=== PATIENT | male | born 2005 | race Caucasian/White ===

== ENCOUNTER 2024-06-05 00:57 | Emergency (ER) | payer MEDICAID, SELFPAY ==
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
--- OUTSIDE RECORDS SUMMARY | 2024-06-05 01:14 | XMS_ITS | Encounter Summary ---
Author Organization [facility] [place] Address [address] [place] [address] Care Team Providers Care Online Affiliate Marketing Manager Name Role Phone Herb Rangel MD Primary Care Provider [phone] Reason for Visit * Reason Comments Groin Pain Encounter Details Date Type Department Care Team (Late st Contact Info) Description 03/16/2024 17:14 EDT - 03/16/2024 18:29 EDT Emergency [facility] Emergency Department [address] [place] [id number] Damon Gonzalez MD [address] [place] [address] Pain in left testicle (Primary Dx) Discharge Disposition: Another Health Care Institution Not Defined Social History Tobacco Use Types Packs/Day Years [...] 16:32 EDT Sexual Orientation Not on file documented as of this encounter Last Filed Vital Signs Vital Sign Reading Time Taken Comments Blood Pressure 127/70 03/16/2024 1627 EDT Pulse 85 03/16/2024 1627 EDT Temperature 36.7 ??C (98.1 ??F) 03/16/2024 1627 EDT Respiratory Rate 16 03/16/2024 1627 EDT Oxygen Saturation 97% 03/16/2024 1627 EDT Inhaled Oxygen Concentration - - Weight 67.1 kg (148 lb) 03/16/2024 1627 EDT Height 180.3 cm (5' 11) 03/16/2024 1627 EDT Body Mass Index 20.64 03/16/2024 1627 EDT documented in this encounter Functional Status Functional Status Response Date of Assess ment Are you deaf or do you have serious difficulty h earing? No 03/16/2024 documented as of this encounter Discharge Instructions * Discharge Instructions* Damon Gonzalez MD - 03/16/2024 17:45 EDT Go directly to the ER at [facility] to have an ultrasound of your testicles/scrotum. Check in at the ER. documented in this encounter Medications at Time of Discharge Medication Sig Dispensed Refills Start Date End Date Estradiol Valerate 20 mg/mL oil INJECT 0.15 ML (3 MG TOTAL) UNDER THE SKIN EVERY 7 (SEVEN) DAYS. DISCARD VIAL AFTER 4 USES. 03/04/2024 spironolactone (ALDACTONE) 50 mg tablet Take 1 Tablet by mouth 2 times daily. 03/08/2024 documented as of this encounter Discharge Disposition Disposition Code Departure Means Destination Comment s Another Health Care Institution Not Defined documented in this encounter ED Notes * Antione Howard RN - 03/16/2024 1628 EDT Pt presents to the ED ambulatory with c/o bilateral testicular pain s/p intercourse 2 hours ago. Reports pain has traveled into his pelvis/lower abdomen. Rating pain 10/10. Pt is transgender, startedhormone blockers 2 weeks ago. * Damon Gonzalez MD - 03/16/2024 1605 EDT Emergency Department Visit Medical Decision Making 18-year-old male transitioning to female transgender who recently started hormone blockers who presents to the ED for testicle pain which started after intercourse this afternoon around 2 PM. The pain initially was in both testicles but now is mostly in the left testicle with some mild swelling of the left testicle and diminished cremaster reflex. Relevant Data as of 03/16/241754e Mar 16, 2024 1748 I spoke with the transfer center and the patient is in auto accepted to go directly to the ER so that he can have a scrotal ultrasound to evaluate for testicular torsion. I spoke with Dr. Moses in the ER at [facility] who has accepted the patient for transfer. The patient will go by private auto. His friend will drive him. [DT] Relevant Data User Index [DT] Damon Gonzalez MD Medical Decision Making Problems Addressed: Pain in left testicle: acute illness or injury Final diagnoses: Pain in left testicle Disposition: Transfered to Another Facility Chief complaint: Groin pain/testicle pain HPI Gibran Holliday is a 18 y.o. male transitioning to female transgender, recently started hormone blockers who presents to the ED for bilateral testicle pain and swelling. The patient developed pain and swelling in both testicles at around 2 PM today after intercourse. Now the pain seems to be more on the left side. The pain has improved somewhat and the swelling also seems to have improved. No dysuria. No penile discharge. No fever. No vomiting. History was provided by: Patient Records reviewed include: Nurses notes Patient's pertinent PMH, FH, SH were reviewed and edited as necessary. Nursing notes reviewed. A medical screening exam was performed. Physical Exam BP 127/70 (BP Cuff Location: Right arm, BP Patient Position: Sitting) Pulse 85 Temp 36.7 ??C (98.1 ??F) (Temporal) Resp 16 Ht 180.3 cm (71) Wt 67.1 kg (148 lb) SpO2 97% BMI 20.64 kg/m?? Physical Exam General/constitutional: Well-nourished, well-developed, alert and cooperative Abdomen: Soft and nontender : Slight swelling of left testicle with tenderness, not high riding, no cremaster reflex on the right or left. Right testicle appears unremarkable. Scrotum unremarkable. No penile discharge. Procedures Procedures documented in this encounter Plan of Treatment Upcoming Encounters Date Type Department Care Team (Late st Contact Info) Description 08/25/2024 10:30 EST Office Visit [facility] Urology - Medical Office Building [address] [facility], [address] [place] [address] Christopher Vogt MD [address] [facility], [address] [place] [address] documented as of this encounter Visit Diagnoses Diagnosis Pain in left testicle- Primary Unspecified disorder of male genital organs documented in this encounter Historical Medications * This list may reflect changes made after this encounter. Medication Sig Dispensed Refills Start Date End Date spironolactone (ALDACTONE) 50 mg tablet Take 1 Tablet by mouth 2 times daily. 03/08/2024 Estradiol Valerate 20 mg/mL oil INJECT 0.15 ML (3 MG TOTAL) UNDER THE SKIN EVERY 7 (SEVEN) DAYS. DISCARD VIAL AFTER 4 USES. 03/04/2024 added in this encounter Care Teams Online Affiliate Marketing Manager Relationship Specialty Start Date End Date Herb Rangel MD [address] [facility] [address] [place], [place] [address] PCP - General 03/16/24 documented as of this encounter
--- OUTSIDE RECORDS SUMMARY | 2024-06-05 01:14 | XMS_ITS | Encounter Summary ---
Author Organization [facility] Address [address] [place] [address] Care Team Providers Care Carbon Coater Machine Operator Name Role Phone Herb Rangel MD Primary Care Provider [phone] Encounter Details Date Type Department Care Team (Latest Contact Info) Description 03/16/2024 Travel Social History Tobacco Use Types Packs/Day Years Used Date Smoking Tobacco: Every Day Cigarettes Comments:Vaping Alcohol Use Standard Drinks/Week Comments Not Currently 0 (1 standard drink = 0.6 oz pur e alcohol) Interpersonal Safety Answer Date Record ed Physically Hurt Never 08/22/2020 Verbally Threaten Not on file 08/22/2020 Sex and Gender Information Value Date Recorded Sex Assigned at Not on file Gender Identity Male 03/16/2024 16:32 EDT Sexual Orientation Not on file documented as of this encounter Functional Status Functional Status Response Date of Assess ment Are you deaf or do you have serious difficulty h earing? No 03/16/2024 documented as of this encounter Plan of Treatment Upcoming Encounters Date Type Department Care Team (Late st Contact Info) Description 08/25/2024 10:30 EST Office Visit [facility] Urology - Medical Office Building [address] [facility], [address] [place] [address] Christopher Vogt MD [address] [facility], [address] [place] [address] documented as of this encounter Visit Diagnoses Not on filedocumented in this encounter Care Teams Carbon Coater Machine Operator Relationship Specialty Start Date End Date Herb Rangel MD [address] [place] [address] [address] [place] [address] PCP - General 03/16/24 documented as of this encounter
--- OUTSIDE RECORDS SUMMARY | 2024-06-05 01:14 | XMS_ITS | Encounter Summary ---
Author Organization [facility] Address [address] [place] [address] Care Team Providers Care Freight Broker Agent Name Role Phone None, Provider Primary Care Provider Unavailabl e Encounter Details Date Type Department Care Team (Latest Contact Info) Description 03/13/2024 Travel Social History Tobacco Use Types Packs/Day Years Used Date Smoking Tobacco: Never Assessed Interpersonal Safety Answer Date Record ed Physically Hurt Never 08/22/2020 Verbally Threaten Not on file 08/22/2020 Sex and Gender Information Value Date Recorded Sex Assigned at Not on file Gender Identity Male 03/16/2024 16:32 EDT Sexual Orientation Not on file documented as of this encounter Plan of Treatment Upcoming Encounters Date Type Department Care Team (Late st Contact Info) Description 08/25/2024 10:30 EST Office Visit [facility] Urology - Medical Office Building [address] [place] [address], [address] [place] [address] Christopher Vogt MD [address] [facility], [address] [place] [address] documented as of this encounter Visit Diagnoses Not on filedocumented in this encounter Care Teams Freight Broker Agent Relationship Specialty Start Date End Date None, Provider PCP - General 03/13/24 03/15/24 documented as of this encounter
--- OUTSIDE RECORDS SUMMARY | 2024-06-05 01:14 | XMS_ITS | Encounter Summary ---
Author Organization [facility] Address [address] [place] [address] Care Team Providers Care Orthopedic Assistant Name Role Phone Herb Rangel MD Primary Care Provider [phone] None, Provider Primary Care Provider Unavailabl e Herb Rangel MD Primary Care Provider [phone] Encounter Details Date Type Department Care Team (Late st Contact Info) Description 06/09/2020 Lab Requisition [facility] Pathology & Laboratory Medicine - [address] [id number] Outr Resulting Lab, Provider Social History Tobacco Use Types Packs/Day Years Used Date Smoking Tobacco: Never Assessed Sex and Gender Information Value Date Recorded Sex Assigned at Not on file Gender Identity Male 03/16/2024 16:32 EDT Sexual Orientation Not on file documented as of this encounter Plan of Treatment Upcoming Encounters Date Type Department Care Team (Late st Contact Info) Description 08/25/2024 10:30 EST Office Visit [facility] Urology - Medical Office Building [address] [facility], [address] [place], [place] [address] Christopher Vogt MD [address] [facility], [address] [place] [address] documented as of this encounter Procedures Procedure Name Priority Date/Time Associated Diagnosis Comments FAM-LUIS PANEL Routine 06/09/2020 11 :57 EDT documented in this encounter Results * (ABNORMAL) FAM-LUIS PANEL (06/09/2020 11:57 EDT) EBV VCA IgM, Antibody Negative Negative 06/12/2020 11:[address] [facility] Comment:Absence of detectabl e VCA IgM antibodies. EBV VCA IgG, Antibody Positive(A) Negative 06/12/2020 11:[address] [facility] Comment:Presence of detectab le VCA IgG antibodies. EBNA IgG Antibody Positive(A) Negative 2019 11:[address] [facility] Comment:Presence of detectab le EBNA IgG antibodies. 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 Blood VENOUS BLOOD / Unknown 06/09/2020 11:57 EDT 06/09/2020 21:57 EDT Provider Outr Resulting Lab IMMUNOLOGY A ND SEROLOGY ORDERABLES Performing Organization Address City/State/[facility] Co de Phone Number [facility] [address] [place] [address] documented in this encounter Visit Diagnoses Not on filedocumented in this encounter Care Teams Orthopedic Assistant Relationship Specialty Start Date End Date Herb Rangel MD [address] [id number] PCP - General 06/12/20 05/30/23 None, Provider PCP - General 03/13/24 03/15/24 Herb Rangel MD [address] [phone] PCP - General 03/16/24 documented as of this encounter
--- OUTSIDE RECORDS SUMMARY | 2024-06-05 01:14 | XMS_ITS | Encounter Summary ---
Author Organization [facility] Address [address] [place] [address] Care Team Providers Care Aquaculture Director Name Role Phone Herb Rangel MD Primary Care Provider [phone] None, Provider Primary Care Provider Unavailabl e Herb Rangel MD Primary Care Provider [phone] Encounter Details Date Type Department Care Team (Late st Contact Info) Description 10/12/2021 Lab Requisition [facility] Pathology & Laboratory Medicine - [address] [address] Outr Resulting Lab, Provider Social History Tobacco [...] Info) Description 08/25/2024 10:30 EST Office Visit [facility] Urology - Medical Office Building [address] [facility], [address] [place], [place] [address] Christopher Vogt MD [address] [facility], [address] [place] [phone] documented as of this encounter Procedures Procedure Name Priority Date/Time Associated Diagnosis Comments OVA/PARASITE EXAM Routine 10/12/2021 11: 58 EST documented in this encounter Results * OVA/PARASITE EXAM (10/12/2021 11:58 EST) Parasite No ova and parasites seen. 10/14/2021 12:32 EST [facility] Feces SPECIMEN FROM RECTUM / Unknown 10/12/2021 11:58 EST 10/12/2021 21:46 EST Narrative [facility] - 10/14/2021 12:32 EST (If Cryptosporidium, Cyclospora, or Microsporidium are suspected, specific tests must be requested.) Single negative specimen does not rule out the possibility of a parasitic infection. Provider Outr Resulting Lab MICROBIOLOGY - GENERAL ORDERABLES Performing Organization Address City/State/[facility] Co de Phone Number [facility] [address] [place] [address] documented in this encounter Visit Diagnoses Not on filedocumented in this encounter Care Teams Aquaculture Director Relationship Specialty Start Date End Date Herb Rangel MD 44 [facility],[address] [phone] PCP - General 06/12/20 05/30/23 None, Provider PCP - General 03/13/24 03/15/24 Herb Rangel MD 44 [facility],[address] [phone] PCP - General 03/16/24 documented as of this encounter
--- OUTSIDE RECORDS SUMMARY | 2024-06-05 01:14 | XMS_ITS | Encounter Summary ---
Author Organization [facility] Address [address] [place] [address] Care Team Providers Care Immigration Law Specialist Name Role Phone Herb Rangel MD Primary Care Provider [phone] None, Provider Primary Care Provider Unavailabl e Herb Rangel MD Primary Care Provider [phone] Encounter Details Date Type Department Care Team (Late st Contact Info) Description 06/16/2020 Lab Requisition [facility] Pathology & Laboratory Medicine - [address] [address] Outr Resulting Lab, Provider Social History Tobacco [...] Info) Description 08/25/2024 10:30 EST Office Visit [facility] Urology - Medical Office Building [address] [facility], [address] [place], [place] [address] Christopher Vogt MD [address] [facility], [address] [place] [address] documented as of this encounter Procedures Procedure Name Priority Date/Time Associated Diagnosis Comments DO NOT ORDER STANDALONE - BROAD COVID TEST Today 06/16/2020 15:47 EDT COVID-19 TESTING Routine 06/16/2020 15:4 7 EDT documented in this encounter Results * DO NOT ORDER STANDALONE - BROAD COVID TEST (06/16/2020 15:47 EDT) COVID-19 rt-PCR Result NEGATIVE Negative 06/17/2020 16:09 EDT [facility] Comment: 2019-novel Coronavirus (2019-nCoV) not detected by the qRT-PCR assay. Consider testing for other respiratory viruses or re-collecting for 2019-nCoV testing. Note: Optimum timing for peak viral levels during infections caused by 2019-nCoV have not been determined. Collection of multiple specimens from the same patient may be necessary to detect the virus. Limitations Positive results are indicative of active infection with SARS-CoV-2 but do not rule out bacterial infection or co-infection with other viruses. The agent detected may not be the definite cause of disease. In addition, detection of viral RNA may not indicate the presence of infectious virus or that SARS-CoV-2 is the causative agent for clinical symptoms. Negative results do not preclude SARS-CoV-2 infection and should not be used as the sole basis for patient management decisions. Negative results must be combined with clinical observations, patient history, and epidemiological information. False negative results may also occur if amplification inhibitors are present in the specimen or if inadequate numbers of organisms are present in the specimen. Optimum specimen types and timing for peak viral levels during infections caused by SARS-CoV-2 have not been fully determined. Collection of multiple specimens (types and time points) from the same patient may be necessary to detect the virus. The test was validated for use with upper respiratory specimens obtained via nasopharyngeal or oropharyngeal swabs in VTM, UTM, M4, M5, M6, saline, and MTM media. The performance of this test has not been established for other specimens. Specimens collected using other FDA recommended Specimen Collection Materials listed in the FDA COVID-19 [employer] communication (December 23, 2019) are processed with the caveat that they were not all validated for use with this test and the result must be interpreted in this context. Furthermore, a false negative results may occur if a specimen is improperly collected, transported or handled. If the virus mutates in the RT-PCR target region, SARS-CoV-2 may not be detected or may be detected less predictably. Inhibitors or other types of interference may produce a false negative result. An interference study evaluating the effect of common cold medications was not performed. This test is not FDA-cleared but its performance characteristics were established by our CLIA-certified, CAP-accredited, high complexity laboratory in accordance with CLIA regulations, [employer] [place] [employer] (CAP) guidelines (Dec 16, 2019), and FDA guidance (Nov 27, 2019). This test is only for use under the Food and Drug Administration's Emergency Use Authorization. Swab ENTIRE NASOPHARYNX / Unknown 06/16/2020 15:47 EDT 06/16/2020 21:31 EDT Provider Outr Resulting Lab MICROBIOLOGY - GENERAL ORDERABLES [facility] [place], [place] * COVID-19 TESTING (06/16/2020 15:47 EDT) COVID-19 rt-PCR Result NEGATIVE Negative 06/17/2020 17:45 EDT [facility] Comment: 2019-novel Coronavirus (2019-nCoV) not detected by the qRT-PCR assay. Consider testing for other respiratory viruses or re-collecting for 2019-nCoV testing. Note: Optimum timing for peak viral levels during infections caused by 2019-nCoV have not been determined. Collection of multiple specimens from the same patient may be necessary to detect the virus. Limitations Positive results are indicative of active infection with SARS-CoV-2 but do not rule out bacterial infection or co-infection with other viruses. The agent detected may not be the definite cause of disease. In addition, detection of viral RNA may not indicate the presence of infectious virus or that SARS-CoV-2 is the causative agent for clinical symptoms. Negative results do not preclude SARS-CoV-2 infection and should not be used as the sole basis for patient management decisions. Negative results must be combined with clinical observations, patient history, and epidemiological information. False negative results may also occur if amplification inhibitors are present in the specimen or if inadequate numbers of organisms are present in the specimen. Optimum specimen types and timing for peak viral levels during infections caused by SARS-CoV-2 have not been fully determined. Collection of multiple specimens (types and time points) from the same patient may be necessary to detect the virus. The test was validated for use with upper respiratory specimens obtained via nasopharyngeal or oropharyngeal swabs in VTM, UTM, M4, M5, M6, saline, and MTM media. The performance of this test has not been established for other specimens. Specimens collected using other FDA recommended Specimen Collection Materials listed in the FDA COVID-19 [employer] communication (December 23, 2019) are processed with the caveat that they were not all validated for use with this test and the result must be interpreted in this context. Furthermore, a false negative results may occur if a specimen is improperly collected, transported or handled. If the virus mutates in the RT-PCR target region, SARS-CoV-2 may not be detected or may be detected less predictably. Inhibitors or other types of interference may produce a false negative result. An interference study evaluating the effect of common cold medications was not performed. This test is not FDA-cleared but its performance characteristics were established by our CLIA-certified, CAP-accredited, high complexity laboratory in accordance with CLIA regulations, [employer] [place] [employer] (CAP) guidelines (Dec 16, 2019), and FDA guidance (Nov 27, 2019). This test is only for use under the Food and Drug Administration's Emergency Use Authorization. Performing Lab [facility] 06/17/2020 17:45 EDT [facility] Swab 06/16/2020 15:4 7 EDT 06/16/2020 21:31 EDT Provider Outr Resulting Lab MICROBIOLOGY - GENERAL ORDERABLES [facility] [address] [place] [address] [facility] [place] documented in this encounter Visit Diagnoses Not on filedocumented in this encounter Care Teams Immigration Law Specialist Relationship Specialty Start Date End Date Herb Rangel MD 44 [facility],[address] [phone] PCP - General 06/12/20 05/30/23 None, Provider PCP - General 03/13/24 03/15/24 Herb Rangel MD 44 [facility] [address] [place] [address] PCP - General 03/16/24 documented as of this encounter
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
--- OUTSIDE RECORDS SUMMARY | 2024-06-05 01:14 | XMS_ITS | Encounter Summary ---
Author Organization [facility] Address [address] [place] [address] Care Team Providers Care Purification Director Name Role Phone Herb Rangel MD Primary Care Provider [phone] None, Provider Primary Care Provider Unavailabl e Herb Rangel MD Primary Care Provider [phone] Encounter Details Date Type Department Care Team (Late st Contact Info) Description 10/12/2021 Lab Requisition [facility] Pathology & Laboratory Medicine - [address] [id number] Outr Resulting Lab, Provider Social History Tobacco [...] 08/25/2024 10:30 EST Office Visit [facility] Urology - Medical Office Building [address] [facility], [address] [place], [place] [address] Christopher Vogt MD [address] [facility], [address] [place] [phone] documented as of this encounter Procedures Procedure Name Priority Date/Time Associated Diagnosis Comments GIARDIA AND CRYPTOSPORIDIUM ANTIGENS Routine 10/12/2021 11:58 EST documented in this encounter Results * GIARDIA AND CRYPTOSPORIDIUM ANTIGENS (10/12/2021 11:58 EST) Giardia and Cryptosporidium Cryptosporidium Antigen Neg and Giardia Antigen Neg Cryptosporidium Antigen Neg and Giardia Antigen Neg 11:44 EST [facility] Feces SPECIMEN FROM RECTUM / Unknown 10/12/2021 11:58 EST 10/12/2021 21:46 EST Provider Outr Resulting Lab MICROBIOLOGY - GENERAL ORDERABLES Performing Organization Address City/State/[facility] Co de Phone Number [facility] [address] [place] [address] documented in this encounter Visit Diagnoses Not on filedocumented in this encounter Care Teams Purification Director Relationship Specialty Start Date End Date Herb Rangel MD [address] [address] PCP - General 06/12/20 05/30/23 None, Provider PCP - General 03/13/24 03/15/24 Herb Rangel MD [address] [address] PCP - General 03/16/24 documented as of this encounter
--- OUTSIDE RECORDS SUMMARY | 2024-06-05 01:14 | XMS_ITS | Encounter Summary ---
Author Organization [facility] Address [address] [place] [address] Care Team Providers Care Senior Advisor Name Role Phone Herb Rangel MD Primary Care Provider [phone] Reason for Referral * Consult (Routine/Next Available) - Receiving Office to Obtain Authorization Specialty Diagnoses / Procedures [facility]erred To Contact Urology Diagnoses Bilateral varicoceles [facility] Ed [address] [place] [address] Christopher Vogt MD [address] [facility] [address] [place] [address] Referral ID Status Reason Start Date Expiration Date Visits Requested Visits Authorized [id number] Receiving Office to Obtain Authorization Specialty Services Required 4 1 1 Question Answer Reason for Request: bilateral varicoceles associated with discomfort. Recently started on estrogen/spironolactone, transitioning male to female. 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 Pain was initially a 10/10, has since subsided to a 1/10. Transferred to r/o torsion. NAD, VSS. Recently began hormone treatment regimen. Encounter Details Date Type Department Care Team ([facility] Contact Info) Description 03/16/2024 19:04 EDT - 03/16/2024 21:[address] [facility] Emergency Department - [facility] [address] [place], [place] [id number] Tamera Rosario MD [address] [facility], [address] [place] [address] Bilateral varicoceles (Primary Dx) Discharge Disposition: Home [...] 122/78 03/16/2024 1903 EDT Pulse 86 03/16/2024 1903 EDT Temperature 37.3 ??C (99.1 ??F) 03/16/2024 1903 EDT Respiratory Rate 16 03/16/2024 1903 EDT Oxygen Saturation 100% 03/16/2024 1903 EDT Inhaled Oxygen Concentration - - Weight 65.8 kg (145 lb) 03/16/2024 1903 EDT Height 180.3 cm (5' 11) 03/16/2024 1903 EDT Body Mass Index 20.22 03/16/2024 1903 EDT documented in this encounter Functional Status Functional Status Response Date of Assess ment Are you deaf or do you have serious difficulty h earing? No 03/16/2024 documented as of this encounter Discharge Instructions * Discharge Instructions* Angela Calderon MD - 03/16/2024 21:35 EDT You were seen in the emergency department today for your testicular pain. While you are here you received 2 ultrasounds and a urine analysis. On your ultrasound, you were found to have bilateral varicoceles. Because of your continued pain, we recommend that you follow-up with our urology clinic, ref errals been placed. If you do not hear back from them within 2 business days, please call the number above. If you continue to have discomfort, please take Tylenol, Advil, and limit your sexual activity. They also suggested that she wear tight fitting underwear. If you develop any fevers, or abnormal discharge from your penis, please follow- up with [facility] or return to the emergency department. You should also return if you have significantly worsening pain or significant scrotal swelling. Thank you for coming to the ED at [facility] for your medical care. Whenever we see you in the emergency department we are getting a snapshot of your medical condition. Things can change and even small changes might alter how we care for you. If your symptoms change in a way that concerns you or makes you unsure, please return for re-evaluation. We are here 24 hours a day, every day of the year, so donot hesitate to return. documented in this encounter Medications at Time [...] Means Destination Comment s Home or Self Usp documented in this encounter ED Notes * Jacqueline Huerta RN - 03/16/2024 2138 EDT Urine orders cancelled per AAKASH STAPLETON. Pt discharged by . * Jacqueline Huerta RN - 03/16/2024 1917 EDT Pt in ultrasound, will assess when returns to room. * Tamera Rosario MD - 03/16/2024 1853 EDT Emergency Department Visit I, Tamera Rosario MD (Molly), saw and examined the patient with the resident. I agree with (or have edited) the findings and the plan of care as documented in the resident's note. I performed or was present during the lam or critical portions of the visit and participated in the management of the patient. I agree with the assessment and plan as documented by the resident. This note was created and authored by Angela Calderon MD working under the supervision of Tamera Rosario MD. This documentation is recorded by Luisa Bravo acting as Scribe under the direction and presence of Tamera Rosario MD and Angeal Calderon MD. Tamera Rosario MD and Angela Calderon MD: I personally performed the services recorded by the scribe in my presence. I confirm the scribe's documentation has been reviewed by me to accurately and completely record my work, treatment, procedures, and medical decision making. Medical Decision Making Relevant Data as of 03/17/24 0101 e Mar 16, [id number] Patient reevaluated. Able to complete testicular exam with sanding machine tender Dr. Donya Rosario. Varicoceles noted bilaterally, which diminish in size when supine. Patient was unable to pee again, as he had just peed for his renal bladder ultrasound. However was able to verify through [facility] portal that patient's GC/chlamydia was negative at his most recent visit. Patient denies any new partners since that visit. Given negative GC chlamydia, pending cultures, and good blood flow to testes by ultrasound, and urology follow up planned, patient stable for discharge. Given return precautions and instructions. Patient stated understanding and was excited to leave. [MK] Relevant Data User Index [MK] Angela Calderon MD Imaging (independent interpretation) of the scrotum US: appear homogenous. Medical Decision Making Patient is a 18-year-old that presented to the ED for testicular pain. Patient is afebrile and vitally stable. Physical exam demonstrated bilateral varicoceles. Varicoceles reduced in size going fromstanding to lying down. No palpable abdominal pain Patient complains of testicular pain and abdominal pain. Abdominal exam without peritoneal signs. No evidence of acute abdomen at this time. Well appearing. Given work up, low suspicion for acute hepatobiliary disease (including acute cholecystitis or cholangitis), acute pancreatitis (neg lipase), PUD (including gastric perforation), acute infectious processes (cystitis, orchitis, epididymitis, pyelonephritis), acute appendicitis, vascular catastrophe, bowel obstruction, viscus perforation, diverticulitis. Presentation not consistent with other acute, emergent causes of abdominal pain at thistime. Patient's testicular pain is concerning; testicular ultrasound ordered, which demonstrated normal blood flow to bilateral testes (low concern for testicular torsion) and revealed new dx of bilateral varicoceles. I do not suspect that the patient has abscess, severe cellulitis, Seamus's gangrene, orchitis, epididymitis, inguinal hernia or other emergent cause of scrotal/abd discomfort. Given patient's persistent discomfort, did discuss case with urological resident. They recommended renal and bladder ultrasound, with follow-up in their clinic in 1 week. Problems Addressed: Bilateral varicoceles: complicated acute illness or injury Amount and/or Complexity of Data Reviewed Labs: ordered. Radiology: ordered. The patient had a scrotal US which was significant for 1. No testicular mass or evidence of torsion. 2. Bilateral varicoceles. Patient had US that was obtained, reviewed, and interpreted by myself along with a radiologist. Please see radiology report for further details. Pt also had renal/bladder US that was normal, including patent renal veins. Final diagnoses: Bilateral varicoceles Disposition: Discharged Chief complaint: groin pain HPI Gibran Holliday is a 18 y.o. with no documented past medical history who presents to the ED for groinpain. The patient originally presented to [facility] ED for bilateral testicular pain and swelling. Thepain is greater on the left compared to the right. The pain began around 1400 today shortly after intercourse. Denies dysuria, penile discharge, fever, or vomiting. Alberto was transferred to [facility] ED for a scrotal ultrasound. At this time, Gibran's pain and swelling have decreased to a 2/10. Alberto began hormone therapy two weeks ago (initiating hormonal transition). [facility] at that time, which was negative. Did discuss patient's desire pronouns, stated all pertinent to be acceptable, or name Gibran. History was provided by: patient Records reviewed include: [facility] MyChart on patient's phone, visit was approximately 2 weeks ago Patient's pertinent PMH, FH, SH were reviewed and edited as necessary. Nursing notes reviewed. A medical screening exam was performed. Physical Exam BP 122/78 Pulse 86 Temp 37.3 ??C (99.1 ??F) (Temporal) Resp 16 Ht 180.3 cm (71) Wt 65.8 kg (145 lb) SpO2 100% BMI 20.22 kg/m?? Physical Exam Constitutional: NAD, well appearing HEENT: Moist mucous membranes, PERRLA Pulmonary: Normal work of breathing Cardiac: Skin warm and well-perfused, cap refill < 2 seconds Abdomen: soft, non-tender, non-distended : sanding machine tender present. Bilateral posterior tender varicoceles palpable that decrease in size when laying down. No scrotal tenderness. Otherwise normal exam with normal testicular size, normal lie, normal cremasterics. Extremities: Moving all extremities spontaneously Skin: Zo[place] warm and dry with no rashes, lesions, bruises Neurological: Alert and oriented to person, place, and time. Engaging appropriately in conversation. Mental status is at baseline. Procedures Procedures Please note that my documentation in this Electronic Healthcare Record was produced using speech recognition software and therefore may contain errors related to that software.These could include grammar, punctuation and spelling errors or the inclusion/ exclusion of phrases that were not intended.Please contact myself for any clarification, questions or concerns. Angela Calderon MD Emergency Medicine PGY-1 documented in this encounter Plan of Treatment Upcoming Encounters Date Type Department Care Team (Late st Contact Info) Description 08/25/2024 10:[address] [facility] Urology - Medical Office Building [address] [facility], [address] [place] [address] Christopher Vogt MD [address] [place] [address], [address] [place] [address] Scheduled Referrals Name Type Priority Associated Diagnoses Order Schedule AMB CONS/FOLLOW UP UROLOGY Outpatient Referral Routine/Next Available Bilateral varicoceles Expected: 03/23/2024 (Approximate), Expires: 03/16/2025 documented as of this encounter Procedures Procedure Name Priority Date/Time Associated Diagnosis Comments US RENAL/BLADDER COMPLETE STAT 03/16/2024 21:26 EDT URINE CHEMICAL (DIP) & SEDIMENT (MICRO) WITH REFLEX TO CULTURE STAT 03/16/2024 19:39 EDT BACTERIAL CULTURE, URINE Today 03/16/2024 19:39 EDT US SCROTUM WITH LIMITED DUPLEX STAT 03/16/2024 19:35 EDT documented in this encounter Results * US RENAL/BLADDER COMPLETE (03/16/2024 21:26 EDT) Anatomical Region Laterality Modality Abdomen, Body Ultrasound 03/17/2024 8:33 EDT Impressions 03/17/2024 8:33 EDT Normal ultrasound of the kidneys and bladder. Renal veins are patent. I have personally reviewed the images and the above interpretation and agree with the findings. [id number] Narrative 03/17/2024 8:33 EDT US RENAL/BLADDER COMPLETE [...] of no clinical concern. Resulting Agency Comment [id number] Procedure Note Tim Cadet MD - 03/17/2024 [...] the above interpretation andagree with the findings. [id number] Angela Calderon MD [facility] US ORDERABLES * BACTERIAL CULTURE, URINE (03/16/2024 19:39 EDT) Organism ID Less than 10,000 CFU/ml Usual urogenital tori. 03/18/2024 8:[address] [facility] Urine URINE SPECIMEN OBTAINED BY CLEAN CATCH PROCEDURE / Unknown Urine Collect / Unknown 03/16/2024 19:39 EDT 03/16/2024 19:42 EDT Angela Calderon MD MICROBIOLOGY - PRIYANK AL ORDERABLES [facility] [address] [place] [address] * UA CHEMICAL & SEDIMENT + REFLEX TO CULTURE (03/16/2024 19:39 EDT) Color UA Yellow Colorless, Yellow 03/16/2024 19:53 [facility] Clarity UA Clear Clear 03/16/2024 19:53 [facility] Glucose UA Negative Negative mg/dL 03/16/2024 19:53 [facility] Bilirubin UA Negative Negative 03/16/2024 19:53 [facility] Ketones UA Negative Negative 03/16/2024 19:53 [facility] Specific [place], Urine 1.014 1.001 - 1.030 03/16/2024 19:53 [facility] Blood UA Negative Negative 03/16/2024 19:53 [facility] Urobilinogen UA 0.2 0.2-1.0 mg/dL mg/dL 03/16/2024 19:53 [facility] Nitrite UA Negative Negative 03/16/2024 19:53 [facility] Leukocyte Esterase UA Negative Negative 03/16/2024 19:53 [facility] Protein UA Negative Negative mg/dL 03/16/2024 19:53 [facility] pH, UA 6.0 <8.5 03/16/2024 19:53 [facility] Urine RBC Count, Auto 0 - 2 0 - 2 Cells/HPF 03/16/2024 19:53 [facility] Urine WBC Count, Auto 0 - 3 0 - 3 Cells/HPF 03/16/2024 19:53 [facility] Urine Squamous Count, Auto None Seen None Seen Cells/HPF 03/16/2024 19:53 [facility] Urine Hyaline Cast Count, Auto <=10 <=10 Casts/LPF 03/16/2024 19:53 [facility] Urine Bacteria Count, Auto None Seen None Seen Bacteria/HPF 03/16/2024 19:[address] [facility] Urine URINE SPECIMEN OBTAINED BY CLEAN CATCH PROCEDURE / Unknown Urine Collect / Unknown 03/16/2024 19:39 EDT 03/16/2024 19:[address] [facility] - 03/16/2024 19:53 EDT NOTE: Reflex to Urine Culture test is not indicated based on Urine Sediment Analysis results. Urine Sediment Analysis results are unreliable on urines that are unrefrigerated for >2 hrs or refrigerated >8 hrs. iKley Marroquin MD URINALYSIS ORDERAB LES [facility] [address] [place], [place] [id number] * US SCROTUM WITH LIMITED DUPLEX (03/16/2024 [...] above interpretation and agree with the findings. [id number] Narrative 03/17/2024 8:30 EDT US SCROTUM WITH LIMITED DUPLEX ??03/16/2024 7:04 PM SIGNS AND SYMPTOMS/COMMENTS: bilateral testicular pain and swelling; COMPARISON: None DUPLEX: Indication For Duplex: Concern for testicular torsion and/or mass Technique: Color and spectral Doppler ultrasound of the scrotum was performed. Resulting Agency Comment [id number] Procedure Note Tim Cadet MD - 03/17/2024 [...] the above interpretation andagree with the findings. [id number] Kiley Marroquin MD IMG US ORDERABLES documented in this encounter Visit Diagnoses Diagnosis Bilateral varicoceles- Primary Scrotal varices documented in this encounter Care Teams Senior Advisor Relationship Specialty Start Date End Date Herb Rangel MD [address] [place] [id number] PCP - General 03/16/24 documented as of this encounter
--- OUTSIDE RECORDS SUMMARY | 2024-06-05 01:14 | XMS_ITS | Encounter Summary ---
Author Organization [facility] Address [address] [place] [address] Care Team Providers Care Doughnut Machine Operator Name Role Phone Herb Rangel MD Primary Care Provider [phone] None, Provider Primary Care Provider Unavailabl e Herb Rangel MD Primary Care Provider Encounter Details Date Type Department Care Team (Late st Contact Info) Description 10/12/2021 Lab Requisition [facility] Pathology & Laboratory Medicine - [address] [address] Outr Resulting Lab, Provider Social History Tobacco [...] 10:30 EST Office Visit [facility] Urology - Medical Office Building [address] [facility], [address] [place], [place] [address] Christopher Vogt MD [address] [facility], [address] [place] [phone] documented as of this encounter Procedures Procedure Name Priority Date/Time Associated Diagnosis Comments FECAL BACTERIAL PATHOGENS BY PCR Routine 10/12/2021 11:58 EST documented in this encounter Results * FECAL BACTERIAL PATHOGENS BY PCR (10/12/2021 11:58 EST) Salmonella PCR Negative Negative 10/13/2021 10:57 EST [facility] Shigella/Enteroin vasive E. coli Negative Negative 10/13/2021 10:57 EST [facility] HN LAB CAMPYLOBACTER PCR Negative Negative 10/13/2021 10:57 EST [facility] Shiga Toxin PCR Negative Negative 10:57 EST [facility] Feces SPECIMEN FROM RECTUM / Unknown 10/12/2021 11:58 EST 10/12/2021 21:46 EST Provider Outr Resulting Lab MICROBIOLOGY - GENERAL ORDERABLES Performing Organization Address City/State/[facility] Co de Phone Number [facility] [address] [place] [address] documented in this encounter Visit Diagnoses Not on filedocumented in this encounter Care Teams Doughnut Machine Operator Relationship Specialty Start Date End Date Herb Rangel MD [address] [address] PCP - General 06/12/20 05/30/23 None, Provider PCP - General 03/13/24 03/15/24 Herb Rangel MD [address] [facility] [address] PCP - General 03/16/24 documented as of this encounter
[2024-06-05 01:19] VITALS: BP 117/77; PULSE 114; RESP 18; TEMP 36.6; O2SAT 98
--- NOTE | 2024-06-05 01:33 | ED.GENADUL_ITS ---
Discharge Plan Disposition Patient Disposition: Home Condition: Improving Discharge Details Clinical Impression: Nausea & vomiting, Hypomagnesemia Primary Care Provider: Tiffanie,Local ED Provider: Konrad Engles and New Rx's Prescriptions: New Ondansetron Odt, 3 Tabs/Btl [Zofran Odt, 3 Tabs/Btl] 4 mg PO Q8H PRN (Reason: Nausea And Vomiting) Qty: 3 0RF Continued spironolactone [Aldactone] 100 mg tablet 100 mg PO DAILY estradiol cypionate IM Discharge Instructions Instructions: Nausea and Vomiting, Adult ED Additional Instructions: You were seen in the ED for vomiting and diarrhea with improvement of your symptoms after fluids and medications. Your laboratory studies were reassuring other than low magnesium which was replaced here. Please follow-up with your primary care this coming week. Return to ED for persistent vomiting, worsening abdominal pain, bloody diarrhea, other concerns. HPI General Mode of arrival: ambulatory . Date/Time Provider Initiated Documentation: 06/05/24 01:33 . Limitations to Documentation: no limitations . Information obtained by: patient . HPI Narrative: Patient presents to ED with onset of abdominal pain, vomiting, diarrhea approximately 5 hours ago. Has been unable to keep anything down at this point. Describes the pain is low in the abdomen and somewhat constant. Denies any hematemesis or hematochezia. Denies any chest pain or shortness of breath. Was fine during the day prior to symptoms. Related Data Home Medications ?Medication ?Instructions ?Recorded ?Confirmed Ondansetron ODT, 3 tabs/btl 4 mg PO Q8H PRN Nausea And 06/05/24 [Zofran ODT, 3 tabs/btl] Vomiting #3 caps estradiol cypionate IM 06/05/24 spironolactone 100 mg tablet 100 mg PO DAILY 06/05/24 06/05/24 (Aldactone) Previous Rx's ?Medication ?Instructions ?Recorded Ondansetron ODT, 3 tabs/btl 4 mg PO Q8H PRN Nausea And 06/05/24 [Zofran ODT, 3 tabs/btl] Vomiting #3 caps Allergies Allergy/AdvReac Type Severity Reaction Status Date / Time No Known Allergies Allergy Unverified 06/05/24 01:23 General Stated Complaint: Abd Prob DONALD: 3 Review of Systems Narrative: Per HPI Exam Narrative Exam Narrative: Const: WDWN male in NAD. VS per triage. HEENT: NC/AT. Normal facial exam. Neck: Supple. Trachea midline. Lungs: Normal respiratory effort. Lungs are clear. Cor: RRR without murmur. Good radial pulses. GI: Soft/ND. Mild diffuse tenderness throughout. Neuro: A+O x 3. Normal speech, mentation, gait. Cranial nerves II - XII grossly intact. No gross motor or sensory deficit. Ext: No C/C/E. Course Vital Signs Vital signs: Vital Signs Temperature 97.9 F 06/05/24 01:19 Pulse 114 H 06/05/24 01:19 Respiratory Rate 18 06/05/24 01:19 Blood Pressure 117/77 06/05/24 01:19 Pulse Oximetry 98 06/05/24 01:19 Temperature 97.9 F 06/05/24 01:19 Temperature Source Skin 06/05/24 01:19 Pulse 114 H 06/05/24 01:19 Respiratory Rate 18 06/05/24 01:19 Respiratory Effort Normal 06/05/24 01:21 Blood Pressure 117/77 06/05/24 01:19 Blood Pressure Position Sitting 06/05/24 01:19 Pulse Oximetry 98 06/05/24 01:19 Oxygen Delivery Method Room Air 06/05/24 01:19 Oxygen Flow Rate 0 06/05/24 01:19 Medical Decision Making Patient presenting with acute onset of abdominal pain, vomiting, diarrhea this evening. He is mildly tachycardic. He has mild diffuse tenderness but no guarding or rebound. Will place IV and give fluids, ondansetron. Check abdominal labs and reevaluate. Patient still nauseated after 1 L of fluid and ondansetron. Labs unremarkable other than low magnesium. IV prochlorperazine and a second liter of fluid ordered as well as 2 g of IV mag. Patient now feeling much better with no nausea and no abdominal pain. Will plan discharge home with a to go bottle of the ondansetron for recurrent nausea vo miting. Follow-up with primary care this coming week. Return precautions provided. Lab Data Lab results reviewed: Yes I reviewed the patient's lab results. Quality:SDOH Health Related Social Needs: No Data to Display PFSH All Active Problems (Updated 06/05/24 @ 05:08 by Konrad Engle MD) Hypomagnesemia (Acute) Nausea & vomiting (Acute) Medical History (Updated 06/05/24 @ 05:08 by Konrad Engle MD) No significant past medical history Surgical History (Updated 06/05/24 @ 02:01 by Konrad Engle MD) No significant past surgical history Social History Smoking risk assessment performed?: No Alcohol Intake: never Drug use: Never Substance use type: marijuana
[2024-06-05 02:04] LABS: Abs Immature Grans 0.05 10^3/uL (0.0-0.06); Absolute Basophil Count 0.02 10^3/uL (0.0-0.2); Absolute Lymphocyte Count 0.43 10^3/uL (1.2-3.4); Absolute Neutrophil Count 14.79 10^3/uL (1.2-6.7); Basophils % 0.1 %; Eosinophils % 0.7 %; HCT 44.4 % (40.0-50.0); HGB 15.8 g/dL (13.5-17.5); Immature Grans % 0.3 %; Lymphocytes % 2.6 %; MCH 31.9 pg (27.0-33.0); MCHC 35.6 % (32.0-36.0); MCV 90 fL (80-95); MPV 9.9 fL (8.0-11.0); Monocytes % 7.3 %; Platelet Count 225 10^3/uL (130-400); RBC 4.96 10^6/uL (4.36-5.78); RDW 12.4 % (11.8-14.1); RDW-SD 40.7 fL; WBC 16.62 10^3/uL (4.4-10.8)
[2024-06-05 02:05] LABS: Absolute Eosinophil Count 0.12 10^3/uL (0.0-0.7); Absolute Monocyte Count 1.21 10^3/uL (0.1-0.8)
[2024-06-05 02:20] LABS: ALT 28 U/L (16-63); AST 16 U/L (15-37); Albumin 4.6 g/dL (3.4-5.0); Alkaline Phosphatase 63 U/L (46-116); Anion Gap 6.8 mmol/L (3-11); BUN 18 mg/dL (7-18); Bilirubin, Total 1.13 mg/dL (0.2-1.0); CO2 29.2 mmol/L (21.0-32.0); CREATININE 0.8 mg/dL (0.70-1.30); Calcium 9.4 mg/dL (8.5-10.1); Chloride 100 mmol/L (98-107); Estimated GFR 130.74 (mL/min/1.73m2); Glucose 129 mg/dL (74-106); Lipase 26 U/L (16-77); Magnesium 1.4 mg/dL (1.8-2.4); Potassium 3.6 mmol/L (3.5-5.1); Sodium 136 mmol/L (136-145); Total Protein 7.4 g/dL (6.4-8.2)
[2024-06-05] MEDS: Lactated Ringers 1,000 ML 1000 ML IV ×2 (02:36→03:39)
[2024-06-05] MEDS: Ondansetron 4 MG/2 ML VIAL IVP (02:36)
[2024-06-05] MEDS: MAGNESIUM SULFATE 2 GM/50 ML BAG IVINF (03:39)
[2024-06-05] MEDS: Prochlorperazine 10 MG/2 ML VIAL IVP (03:40)
[2024-06-05] MEDS: Ondansetron O.D.T. 4 MG TABEF, 3 TABS/BTL PO (05:18)
== END 2024-06-05 05:18 | disposition home or self-care (01) ==
PROVIDERS: Emergency Provider Emergency Medicine
DX: R11.2 Nausea with vomiting, unspecified (principal); E83.42 Hypomagnesemia
CPT/HCPCS: 80053; 83690; 83735; 85025; J0780; J2405; J3475

== ENCOUNTER 2025-01-30 16:08 | Emergency (ER) | payer MEDICAID, SELFPAY ==
[2025-01-30 16:12] VITALS: BP 102/69; PULSE 110; RESP 18; TEMP 38; O2SAT 97
--- NOTE | 2025-01-30 16:30 | DI.RAD_ITS ---
Exam(s) XR CHEST 2V PA LATERAL EXAM: XR CHEST 2V PA LATERAL CLINICAL HISTORY: cough, fever TECHNIQUE: 2D digital imaging was performed. Two views. COMPARISON: No exams were available for comparison FINDINGS: HEART: Normal size. Aorta: Not dilated. PULMONARY VASCULATURE: Normal. MEDIASTINUM: Unremarkable. LUNGS: Clear. PLEURAL SPACE: No pleural effusion or pneumothorax. BONE:Unremarkable for age. SOFT TISSUES: Breast implants. IMPRESSION: No acute abnormality. DATA REPOSITORY: RADIATION DOSE DELIVERED:
--- NOTE | 2025-01-30 16:31 | ED.GENADUL_ITS ---
Discharge Plan Disposition Patient Disposition: Home Condition: Stable Discharge Details Clinical Impression: Viral illness Primary Care Provider: Tiffanie,Local ED Provider: Jamar Bautista Home Meds and New Rx's Prescriptions: New ondansetron 4 mg tablet,disintegrating 4 mg PO Q8H PRN (Reason: nausea and vomiting) Qty: 30 0RF Continued spironolactone [Aldactone] 100 mg tablet 100 mg PO DAILY estradiol cypionate 0.2 mg IM .1 x weekly progesterone micronized 100 mg capsule 100 mg PO DAILY Discharge Instructions Additional Instructions: Your blood work and x-ray did not show any concerning findings at this time. You are likely suffering from a viral illness. You can take 1000 mg of acetaminophen and 600 mg of ibuprofen every 6 hours as needed. If not improving this week follow-up with your primary care provider or express care. If you feel significantly more ill or have persistent vomiting despite the medication ondansetron return to the emergency department for reevaluation. HPI General Mode of arrival: ambulatory . Date/Time Provider Initiated Documentation: 01/30/25 16:09 . Limitations to Documentation: no limitations . Information obtained by: patient . History of Present Illness 19 year old M presents to the emergency department with the chief complaint of nausea, body aches, cough, chills, described as moderate, Patient started experiencing this day(s) (1) and it has been constant. No relieving factors improve symptom(s), No exacerbating factors reported . Patient notes denies chest pain and shortness of breath. Related Data Home Medications ?Medication ?Instructions ?Recorded ?Confirmed estradiol cypionate 0.2 mg IM .1 x weekly 06/05/24 01/30/25 spironolactone 100 mg tablet 100 mg PO DAILY 06/05/24 01/30/25 (Aldactone) ondansetron 4 mg disintegrating 4 mg PO Q8H PRN nausea and 01/30/25 tablet vomiting #30 tabs progesterone micronized 100 mg 100 mg PO DAILY 01/30/25 01/30/25 capsule Previous Rx's ?Medication ?Instructions ?Recorded ondansetron 4 mg disintegrating 4 mg PO Q8H PRN nausea and 01/30/25 tablet vomiting #30 tabs Allergies Allergy/AdvReac Type Severity Reaction Status Date / Time No Known Allergies Allergy Unverified 01/30/25 16:17 General Stated Complaint: GenMedical DONALD: 4 Review of Systems All systems reviewed & are unremarkable except as noted in HPI and below Constitutional Constitutional: Reports chills, Denies fever(s) and Denies weakness Cardiovascular Cardiovascular: Denies chest pain and Denies dyspnea Respiratory Respiratory: Reports cough and Denies dyspnea Gastrointestinal Gastrointestinal: Denies abdominal pain, Reports nausea and Denies vomiting Integumentary/Breasts Skin/Breast: Denies rash Neurologic Neurologic: Denies weakness Exam Const General: no acute distress Orientation: alert HENSC Head: normal to inspection Ears: external ears normal General nose exam: external nose normal Mouth: moist mucous membranes Eyes General: appearance normal, both eyes and all related structures Neck Neck: normal visual inspection Resp Effort & Inspection: normal respiratory effort and able to speak in complete sentences Auscultation: clear to auscultation bilaterally Cardio Jugular venous pressure: no JVD Rate: regular rate Heart Sounds: no murmurs Skin General skin exam: no rashes or lesions noted Neuro General: patient alert and patient oriented x3 Extrem General: normal to inspection Psych Mental Status: mental status grossly normal Course Vital Signs Vital signs: Vital Signs Temperature 38.0 C H 01/30/25 16:12 Pulse 110 H 01/30/25 16:12 Respiratory Rate 18 01/30/25 16:12 Blood Pressure 102/69 01/30/25 16:12 Pulse Oximetry 97 01/30/25 16:12 Temperature 38.0 C H 01/30/25 16:12 Temperature Source Oral 01/30/25 16:12 Pulse 110 H 01/30/25 16:12 Respiratory Rate 18 01/30/25 16:12 Blood Pressure 102/69 01/30/25 16:12 Pulse Oximetry 97 01/30/25 16:12 Oxygen Delivery Method Room Air 01/30/25 16:12 Oxygen Flow Rate 0 01/30/25 16:12 Pain Level 0 01/30/25 16:12 Medical Decision Making 19-year-old comes in with complaints of 1 day of chills, nausea, body aches and states that the last 2 days he has been out in the rain watching music to be p layed. He denies any vomiting but has nausea, denies any drug use other than marijuana. Denies any recent travel. He does have a low-grade fever of 38.0 on arrival here. He is speaking full sentences in no distress. He has clear lung sounds, no murmurs, no JVD, no leg swelling or calf tenderness. Given his constellation of symptoms I suspect a viral illness, will check a CBC, CMP, Fluvid and chest x-ray and treat his symptoms with droperidol and Toradol and IV fluids and reassess. Labs show mild leukocytosis otherwise no significant findings. X-ray unremarkable. Patient feels better and requesting discharge. has no abdominal tenderness still. Given reassuring workup feel she stable for discharge. I suspect viral illness. Patient will follow-up with PCP or express care if not improving and return precautions given Differential Diagnosis Differential Diagnosis: uri, flu, pneumonia Medical Records Medical records reviewed: Yes I reviewed the patient's medical records. Lab Data Lab results reviewed: Yes I reviewed the patient's lab results. Quality:SDOH Health Related Social Needs: No Data to Display PFSH All Active Problems (Updated 01/30/25 @ 17:48 by Jamar Bautista MD) Viral illness (Acute) Medical History (Updated 01/30/25 @ 17:48 by Jamar Bautista MD) No significant past medical history Surgical History (Updated 06/05/24 @ 02:01 by Konrad Engle MD) No significant past surgical history Social History Smoking risk assessment performed?: No Alcohol Intake: current Drug use: Daily Substance use type: marijuana
[2025-01-30] MEDS: Normal Saline Flush 10 ML SYR IVP (16:56)
[2025-01-30] MEDS: Normal Saline 1,000 ML 1000 ML IV (16:56)
[2025-01-30] MEDS: Ketorolac 15 MG/ML VIAL IVP (16:56)
[2025-01-30] MEDS: Droperidol 5 MG/2 ML VIAL 2.5 MG IVP (16:56)
[2025-01-30 17:05] LABS: Magnesium 1.8 mg/dL (1.8-2.4)
[2025-01-30 17:08] LABS: ALT 16 U/L (16-63); AST 10 U/L (15-37); Albumin 3.8 g/dL (3.4-5.0); Alkaline Phosphatase 67 U/L (46-116); BUN 8 mg/dL (7-18); Bilirubin, Total 0.4 mg/dL (0.2-1.0); CREATININE 0.8 mg/dL (0.70-1.30); Calcium 9.1 mg/dL (8.5-10.1); Chloride 101 mmol/L (98-107); Estimated GFR 129.93 (mL/min/1.73m2); Glucose 115 mg/dL (74-106); Potassium 3.2 mmol/L (3.5-5.1); Sodium 137 mmol/L (136-145); Total Protein 6.8 g/dL (6.4-8.2)
[2025-01-30 17:12] LABS: Abs Immature Grans 0.03 10^3/uL (0.0-0.06); Absolute Basophil Count 0.04 10^3/uL (0.0-0.2); Absolute Eosinophil Count 0.01 10^3/uL (0.0-0.7); Absolute Monocyte Count 1.09 10^3/uL (0.1-0.8); Absolute Neutrophil Count 10.41 10^3/uL (1.2-6.7); Basophils % 0.3 %; Eosinophils % 0.1 %; HCT 39.7 % (40.0-50.0); HGB 13.8 g/dL (13.5-17.5); Immature Grans % 0.2 %; Lymphocytes % 7.7 %; MCH 32.8 pg (27.0-33.0); MCHC 34.8 % (32.0-36.0); MCV 94 fL (80-95); Monocytes % 8.7 %; Platelet Count 207 10^3/uL (130-400); RBC 4.21 10^6/uL (4.36-5.78); RDW 12.4 % (11.8-14.1); RDW-SD 43.4 fL; WBC 12.54 10^3/uL (4.4-10.8)
[2025-01-30 17:16] LABS: Absolute Lymphocyte Count 0.97 10^3/uL (1.2-3.4)
[2025-01-30 17:25] VITALS: RESP 16
[2025-01-30 17:25] LABS: COVID-19 PCR Negative (Negative); Influenza A PCR Negative (Negative); Influenza B PCR Negative (Negative); RSV PCR Negative (Negative)
[2025-01-30 17:37] LABS: Source Nasopharynx
[2025-01-30 17:58] VITALS: BP 111/65; PULSE 96; RESP 12; O2SAT 99
--- NOTE | 2025-01-30 18:32 | DI.VRAD_ITS ---
PROCEDURE INFORMATION: Exam: XR Chest Exam date and time: 01/30/2025 5:06 PM Age: 19 years old Clinical indication: Other: Cough, fever TECHNIQUE: Imaging protocol: Radiologic exam of the chest. Views: 2 views. COMPARISON: No relevant prior studies available. FINDINGS: Lungs: The lungs are clear. There is no pulmonary vascular congestion. Pleural spaces: There are no pleural effusions present. There is no evidence of pneumothorax. Heart/Mediastinum: The cardiomediastinal silhouette is within normal limits. Bones/joints: There is mild broad-based dextroscoliosis centered at the lower thoracic spine. Soft tissues: Findings suggest presence of breast prostheses. IMPRESSION: No active cardiopulmonary disease identified. Dictated and Authenticated by: Jose Luis Joseph MD. Orderin Lily Roldan MD
== END 2025-01-30 17:58 | disposition home or self-care (01) ==
PROVIDERS: Emergency Provider Emergency Medicine
DX: B34.9 Viral infection, unspecified (principal)
CPT/HCPCS: 36415; 80053; 87637; 96361; 96374; 96375; 99284; 71046; 83735; 85025; 99283; J1790; J1885